=== PATIENT | male | born 1995 | race Two or more races ===

== ENCOUNTER 2023-03-03 13:40 | Emergency (ER) | payer OTHER ==
[~2023-03-03] VITALS: Ht 177.8 cm; Wt 72.6 kg
[2023-03-03] MEDS ORDERED: KEPPRA XR750 MG PO (14:29)
== END 2023-03-03 18:47 | disposition home or self-care (01) ==
LOC: ER 13:40
DX: G44.209 Tension-type headache, unspecified, not intractable (principal)